=== PATIENT | male | born 1955 | race Caucasian/White ===

== ENCOUNTER 2018-03-03 11:46 | Observation (INO) ==
[2018-03-03] MEDS ORDERED: Acetaminophen 500 MG Tablet PO PRN (14:28)
[2018-03-03] MEDS ORDERED: Regadenoson Inj 0.4 MG/5 ML Syringe IV.PUSH ONE (15:48)
--- NOTE | 2018-03-03 15:49 | P.HP ---
History of Present Illness Chief Complaint: Chest pain History of Present Illness: This is a 62-year-old male patient with no documented medical conditions who presented to the ED with complains of chest pain as well as back and neck pain. 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 Although this morning he noticed a midsternal chest pressure, that was heavy in nature, was rated a 2 out of 10 at its worst on pain scale lasting a couple minutes and would come and go. Patient states that the pain is worse especially with increased stress. Denies any known alleviating factors. He does admit to shortness of breath with the pain, denies any nausea, vomiting or sweating. He does state that he has had intermittent chest pressure over the past several months occurring roughly once a month. He denies any recent illness including fever, chills, headache, abdominal pain, nausea, vomiting, diarrhea or dysuria. He does admit to a upper respiratory infection for the past couple weeks which is improved. He denies any recent antibiotic use. He denies any history of cardiovascular disease. Does not follow with a thinner sprayer. Has not seen a PCP in over 2 years. He is an active smoker, states he has been trying to quit since December. Family history significant for his mother having an AK at the age of [id number] years old. Does not take any medications at home. - Diagnosis (1) Atypical chest pain Review of Systems All other systems reviewed negative except as stated in HPI PMFSH - History History Provided By: Patient - Medical History Medical History: Medical History (Last Reviewed 03/03/18 @ 15:47 by Domenica Jones) Anxiety Hx of skin cancer, basal cell Hypertension - Surgical History Surgical History: Surgical History (Last Reviewed 03/03/18 @ 15:47 by Domenica Jones) History of surgical removal of skin lesion - Family History Family History: Family History (Last Updated 03/03/18 @ 16:02 by Domenica Jones) Other Cardiovascular disease - Social History I have reviewed the patient's Social History: Yes - Tobacco History Second Hand Smoke Exposure: Yes Smoking Status: Current some day smoker Tobacco Type: Cigarettes - Alcohol History How Often Do You Have a Drink Containing Alcohol: Monthly or less - Substance Use History Substance History: Past History Medications and Allergies Active Medications: Active Medications Acetaminophen (Tylenol) 500 mg PO Q4H PRN PRN Reason: HEADACHE Ondansetron HCl (Zofran Inj) 4 mg IV.PUSH Q6H PRN PRN Reason: NAUSEA Sodium Chloride (Ns Flush) 2 ml IV.FLUSH BID CONCEPCION Sodium Chloride (Ns Flush) 2 ml IV.FLUSH PRN PRN PRN Reason: FLUSH AFTER USING IV ACCESS Allergies Allergy/AdvReac Type Severity Reaction Status Date / Time No Known Allergies Allergy Verified 03/03/18 12:09 Home Medications Medication Instructions Recorded Confirmed Type No Known Home Medications 03/03/18 03/03/18 History Exam Narrative: GENERAL: Well-developed, well-nourished patient in [place]. On supplemental O2 SKIN: Warm and dry. No rash. HEAD: Normocephalic. Atraumatic. EYES: Pupils equal and round. No scleral icterus. No injection or drainage. ENT: No nasal bleeding or discharge. Mucous membranes pink and moist. NECK: Supple. Trachea midline. CARDIOVASCULAR: Regular rate and rhythm. S1, S2 noted. No murmur appreciated. No chest pain to palpation RESPIRATORY: No accessory muscle use. Clear to auscultation. Breath sounds equal bilaterally. GASTROINTESTINAL: Abdomen soft, non-tender, nondistended. Normoactive bowel sounds x4. MUSCULOSKELETAL: No obvious deformities. Extremities without clubbing, cyanosis , bilateral lower extremity edema 1+. NEUROLOGICAL: Awake and alert. No obvious cranial nerve deficits. Motor grossly within normal limits. 5/5 muscle strength in bilateral upper and lower extremities. Normal speech. PSYCHIATRIC: Appropriate mood and affect; insight and judgment normal. Caprini VTE Risk Assessment Caprini VTE Risk Assessment: Moderate/High Risk (score >= 2) Caprini Risk Assessment Model: Point Value = 1 Point Value = 2 Point Value = 3 Point Value = 5 Age 41-60 Minor surgery BMI > 25 kg/m2 Swollen legs Varicose veins or History of unexplained or recurrent spontaneous Oral contraceptives or hormone replacement Sepsis (< 1 month) Serious lung disease, including pneumonia (< 1 month) Abnormal pulmonary function Acute myocardial infarction Congestive heart failure (< 1 month) History of inflammatory bowel disease Medical patient at bed rest Age 61-74 Arthroscopic surgery Major open surgery (> 45 min) Laparoscopic surgery (> 45 min) Malignancy Confined to bed (> 72 hours) Immobilizing plaster cast Central venous access Age >= 75 History of VTE Family history of VTE Factor V Leiden Prothrombin [id number] Lupus anticoagulant Anticardiolipin antibodies Elevated serum homocysteine Heparin-induced thrombocytopenia Other congenital or acquired thrombophilia Stroke (< 1 month) Elective arthroplasty Hip, pelvis, or leg fracture Acute spinal cord injury (< 1 month) Prophylaxis Regimen: Total Risk Factor Score Risk Level Prophylaxis Regimen 0-1 Low Early ambulation 2 Moderate Order ONE of the following: *Sequential Compression Device (SCD) *Heparin 5000 units SQ BID 3-4 Higher Order ONE of the following medications: *Heparin 5000 units SQ TID *Enoxaparin/Lovenox 40 mg SQ daily (WT < 150 kg, CrCl > 30 mL/min) *Enoxaparin/Lovenox 30 mg SQ daily (WT < 150 kg, CrCl > 10-29 mL/min) *Enoxaparin/Lovenox 30 mg SQ BID (WT < 150 kg, CrCl > 30 mL/min) AND/OR *Sequential Compression Device (SCD) 5 or more Highest Order ONE of the following medications: *Heparin 5000 units SQ TID (Preferred with Epidurals) *Enoxaparin/Lovenox 40 mg SQ daily (WT < 150 kg, CrCl > 30 mL/min) *Enoxaparin/Lovenox 30 mg SQ daily (WT < 150 kg, CrCl > 10-29 mL/min) *Enoxaparin/Lovenox 30 mg SQ BID (WT < 150 kg, CrCl > 30 mL/min) AND *Sequential Compression Device (SCD) Assessment and Plan - Assessment (1) Atypical chest pain Code(s): R07.89 - Other chest pain Status: Acute - Plan This is a 62-year-old patient who presented to the ED with: Chest pain Bilateral lower extremity swelling Hypertension -Patient has been admitted to the chest pain center for observation. -Serial EKGs and serial troponins have been ordered for ruling out ACS purposes. Initial troponin flat. Continue to monitor trend. -EKG reviewed, normal sinus rhythm with no ST changes to indicate any ischemia. Patient is continued on cardiac telemetry, monitor for any arrhythmias overnight. -Chest x-ray reviewed showing no acute cardiopulmonary disease. CBC and BMP reviewed, essentially unremarkable. -BNP mildly elevated at 183. Will obtain echocardiogram. -Add lipid panel and hemoglobin A1c to labs. Follow. -Administer 20 mg of Lasix IV x1. Assess response. -Blood pressure in the 150 systolic. Lisinopril to regimen. Monitor blood sugar trends. -If ACS ruled out with serial EKGs and serial troponins, patient will undergo a cardiac Lexiscan to further rule out any ischemia. N.p.o. after midnight. -Patient stable at this time and agreeable to plan. -Further hospital station treatment plan will depend on nuclear imaging results. Acute respiratory insufficiency with hypoxia -Chest x-ray reviewed, no acute cardiopulmonary disease noted. Patient is requiring 2 L nasal cannula. Will attempt to wean. -Patient is relatively obese as well as a smoking history and this may be contributing, may have underlying lung disease. -Patient also had an upper respiratory infection the past couple weeks with cough which has improved this may be a contributing factor as well. -Will also give Lasix and assess if patient has improvement of breathing. -Continue to monitor. Tobacco abuse -Encouraged cessation. Nicotine patch offered. DVT prophylaxis: SCDs. Heparin.
[2018-03-03] MEDS ORDERED: Lisinopril 10 MG Tablet PO ONE (16:05)
[2018-03-03] MEDS ORDERED: Morphine Inj 4 MG/ML Vial IV.PUSH PRN (16:07)
[2018-03-03 18:20] LABS: Creatine Kinase 76 U/L (39-308)
[2018-03-03 21:00] LABS: Creatine Kinase 67 U/L (39-308)
[2018-03-03 23:04] LABS: Chol/HDL Ratio 4.92 Ratio; HDL Cholesterol 39.4 mg/dL (40.0-60.0)
[2018-03-04] MEDS ORDERED: Lisinopril 10 MG Tablet PO SCH (09:00)
--- NOTE | 2018-03-04 09:29 | ECHRPT ---
Indication: HEART FAILURE CONCLUSIONS The left ventricular systolic function is normal with an estimated ejection fraction in the range of 60-65%. Normal left ventricular size. Wall thickness is measured at the upper limits of normal. No regional wall motion abnormalities are present. Trace mitral valve regurgitation. Aortic valve sclerosis is present. BP: / HR: Rhythm: Sinus MEASUREMENTS (Male / Female) Normal Values Technical Quality:Technically difficult study 2D ECHO LV Diastolic Diameter PLAX 5.7 cm 4.2 - 5.9 / 3.9 - 5.3 cm LV Systolic Diameter PLAX 4.0 cm IVS Diastolic Thickness 1.1 cm 0.6 - 1.0 / 0.6 - 0.9 cm LVPW Diastolic Thickness 1.2 cm 0.6 - 1.0 / 0.6 - 0.9 cm LV Relative Wall Thickness 0.4 LVOT Diameter 2.2 cm LV Ejection Fraction MOD 4C 68.1 % LV Ejection Fraction 4C AL 68.8 % M-MODE Aortic Root Diameter MM 2.6 cm LA Systolic Diameter MM 4.0 cm LA Ao Ratio MM 1.5 AV Cusp Separation MM 2.1 cm DOPPLER AV Peak Velocity 124.0 cm/s AV Peak Gradient 6.2 mmHg LVOT Peak Velocity 115.0 cm/s LVOT Peak Gradient 5.3 mmHg AV Area Cont Eq pk 3.5 cm MV Area PHT 2.9 cm Mitral E Point Velocity 62.7 cm/s Mitral A Point Velocity 77.0 cm/s Mitral E to A Ratio 0.8 LV E' Lateral Velocity 3.8 cm/s Mitral E to LV E' Lateral Ratio 16.5 LV E' Septal Velocity 4.9 cm/s Mitral E to LV E' Septal Ratio 12.9 PV Peak Velocity 65.2 cm/s PV Peak Gradient 1.7 mmHg FINDINGS LEFT VENTRICLE The left ventricular systolic function is normal with an estimated ejection fraction in the range of 60-65%. Normal left ventricular size. Wall thickness is measured at the upper limits of normal. No regional wall motion abnormalities are present. Doppler parameters are consistent with impaired left ventricular relaxtion (grade 1 diastolic dysfun ction). RIGHT VENTRICLE Normal right ventricular size and systolic function. LEFT ATRIUM The left atrial size is normal. RIGHT ATRIUM The right atrial size is normal. ATRIAL SEPTUM Normal atrial septal thickness without atrial level shunting by limited color doppler interrogation. AORTA The aortic root and proximal ascending aorta are normal in size on limited imaging. MITRAL VALVE Structurally normal mitral valve. Trace mitral valve regurgitation. AORTIC VALVE Trileaflet aortic valve. No aortic valve stenosis or regurgitation. Aortic valve sclerosis is present. TRICUSPID VALVE Structurally normal tricuspid valve. No tricuspid valve stenosis or regurgitation. PULMONARY VALVE The pulmonary valve is not well visualized. VESSELS The inferior vena cava is normal in size. PERICARDIUM No pericardial effusion. Chauncey Arroyo MD (Electronically Signed) Final Date:04 March 2018 09:27
--- NOTE | 2018-03-04 10:49 | P.PNIM ---
Subjective Interval history: Follow-up chest pain. Patient seen and examined, lying in bed continued on 1 L nasal cannula. He states that he does feel somewhat shortness of breath with exertion. Echocardiogram showing compensated diastolic heart failure. Chest pain is resolved. Awaiting Lexiscan this morning. Keep n.p.o. Afebrile. Vital signs stable. Physical Exam Vital signs: Vital Signs 03/03/18 16:00 03/03/18 20:00 03/04/18 00:00 Temperature 96.9 F L 97.9 F 96.9 F L Pulse Rate 72 80 71 Respiratory Rate 20 16 20 Blood Pressure 140/94 H 129/66 116/58 L Pulse Oximetry 91 L 03/04/18 04:00 03/04/18 08:00 03/04/18 09:01 Temperature 96.8 F L 96.7 F L Pulse Rate 68 71 Respiratory Rate 20 20 18 Blood Pressure 138/70 168/84 H Pulse Oximetry 94 L 91 L 03/04/18 09:35 03/04/18 09:46 03/04/18 09:48 Temperature Pulse Rate Respiratory Rate 18 Blood Pressure Pulse Oximetry 88 L 94 L Intake & Output 03/03/18 03/04/18 03/04/18 18:59 06:59 18:59 Intake Total 360 / 360 Output Total 60 / 60 Balance 360 / 360 -60 / -60 Weight 140.8 kg 140.8 kg Intake: Oral 360 / 360 Output: Urine 60 / 60 Other: # Voids 2 Date of Last Bowel Movement 03/03/18 # Bowel Movements 0 Weight On Admission 140.8 kg Narrative: GENERAL: Well-developed, well-nourished patient in [facility]. SKIN: Warm and dry. No rash. HEAD: Normocephalic. Atraumatic. EYES: Pupils equal and round. No scleral icterus. No injection or drainage. ENT: No nasal bleeding or discharge. Mucous membranes pink and moist. NECK: Supple. Trachea midline. CARDIOVASCULAR: Regular rate and rhythm. S1, S2 noted. No murmur appreciated. No chest pain to palpation RESPIRATORY: No accessory muscle use. Clear to auscultation. Breath sounds equal bilaterally. GASTROINTESTINAL: Abdomen soft, non-tender, nondistended. Normoactive bowel sounds x4. MUSCULOSKELETAL: No obvious deformities. Extremities without clubbing, cyanosis , bilateral lower extremity edema 1+. NEUROLOGICAL: Awake and alert. No obvious cranial nerve deficits. Motor grossly within normal limits. 5/5 muscle strength in bilateral upper and lower extremities. Normal speech. PSYCHIATRIC: Appropriate mood and affect; insight and judgment normal. Results - Labs Laboratory Results - last 24 hr 03/03/18 03/03/18 03/03/18 17:12 17:12 20:06 Total Creatine Kinase 76 67 Troponin I Less than 0.02 L Less than 0.02 L Triglycerides 248 H Cholesterol 194 LDL Cholesterol, Calc 105 H HDL Cholesterol 39.4 L Cholesterol/HDL Ratio 4.92 Assessment and Plan - Assessment (1) Atypical chest pain Code(s): R07.89 - Other chest pain Status: Inactive - Plan This is a 62-year-old patient who presented to the ED with: Chest pain, resolved Bilateral lower extremity swelling, improved Hypertension New onset congestive heart failure, diastolic, not in exacerbation. -Patient has been admitted to the chest pain center for observation. -Serial EKGs and serial troponins have been ordered for ruling out ACS purposes. Attention flat. -EKG reviewed, normal sinus rhythm with no ST changes to indicate any ischemia. Patient is continued on cardiac telemetry, monitor for any arrhythmias overnight. None overnight. -Chest x-ray reviewed showing no acute cardiopulmonary disease. -CBC and BMP reviewed, essentially unremarkable. -BNP mildly elevated at 183. Echocardiogram showing compensated diastolic heart failure. Adequate EF. -Elevated lipids and hemoglobin A1c pending. -Administer 20 mg of Lasix IV x1. Assess response. Diuresed well. Added hydrochlorothiazide to regimen. -Blood pressure in the 150 systolic. Lisinopril to regimen. Monitor blood sugar trends. -ACS ruled out with serial EKGs and serial troponins, patient will undergo a cardiac Lexiscan to further rule out any ischemia. N.p.o. -Patient stable at this time and agreeable to plan. -Further hospital station treatment plan will depend on nuclear imaging results. Acute respiratory insufficiency with hypoxia. Improved. -Chest x-ray reviewed, no acute cardiopulmonary disease noted. Oxygen weaned off. -Patient is relatively obese as well as a smoking history and this may be contributing, may have underlying lung disease. -Patient also had an upper respiratory infection the past couple weeks with cough which has improved this may be a contributing factor as well. -Was given Lasix as well. Diuresed well. Breathing improved. -Continue to monitor. Tobacco abuse -Encouraged cessation. Nicotine patch offered. DVT prophylaxis: SCDs. Heparin.
[2018-03-04] MEDS ORDERED: hydroCHLOROthiazide 25 MG Tablet PO SCH (11:30)
--- NOTE | 2018-03-04 11:51 | ECG ---
Date Performed: 03/03/2018 Time Performed: 17:10:31 PTAGE: 62 years EKG: Sinus rhythm MODERATE INTRAVENTRICULAR CONDUCTION DELAY BORDERLINE ECG Since the previous tracing, no significant change noted NO PREVIOUS TRACING DOCTOR: Augustin Kelly Interpretating Date/Time 03/04/2018 11:50:14
--- NOTE | 2018-03-04 11:51 | ECG ---
Date Performed: 03/03/2018 Time Performed: 20:03:04 PTAGE: 62 years EKG: Sinus rhythm MODERATE INTRAVENTRICULAR CONDUCTION DELAY BORDERLINE ECG PREVIOUS TRACING : 03/03/2018 17.10 Since the previous tracing, no significant change noted DOCTOR: Augustin Kelly Interpretating Date/Time 03/04/2018 11:49:59
[2018-03-04 12:36] VITALS: PULSE 79
[2018-03-04 13:12] VITALS: BP 169/88; RESP 20; TEMP 96.9
[2018-03-04 14:00] VITALS: O2SAT 92
--- NOTE | 2018-03-04 14:12 | NM ---
EXAM DATE: 03/04/2018 2:05 PM EST AGE/SEX: 62 years / Male INDICATIONS:Angina. . Chest pain. CLINICAL DATA: This is the patient's initial encounter. Patient reports that signs and symptoms have been present for 3 days and indicates a pain score of 4/10. MEDICAL/SURGICAL HISTORY: Hypertension. Basal cell carcinoma of skin. None. COMPARISON: No prior exams available for comparison. DOSE: 11.2 mCi Tc 99m Myoview at rest 35.1 mCi [id number] at stress 0.4 mg Lexiscan STRESS SYMPTOMS: Short of breath. EJECTION FRACTION: 39 % TECHNIQUE: The patient underwent pharmacologic stress with infusion of prescribed dose. Continuous ECG tracing was monitored during stress. Gated SPECT imaging was performed after stress and conventi onal SPECT imaging was performed at rest. The examination was performed on a SPECT/CT scanner, both attenuation and non-corrected datasets were reviewed. FINDINGS: Distribution: The maximum perfused segment at stress is in the septal wall. Perfusion Study: The pattern of perfusion at stress is within normal limits with some degree of sridhar phragmatic attenuation artifact overlapping posterior basal wall and no ischemia . Gated Study: There there is global hypokinesis . The ejection fraction is calculated at 39%. RISK CATEGORY: Low (<1% Annual Motality Rate) CONCLUSION: 1. Global hypokinesis and reduction in ejection fraction without any significant ischemia. Electronically signed by: Felicita Trejo MD Board Certified Radiologist 03/04/2018 2:11 PM EST
--- NOTE | 2018-03-04 14:55 | TR ---
Date Performed: 03/04/2018 Time Performed: 12:24:10 DOCTOR: Renato Ponce DRUG LIST: CLINICAL HISTORY: REASON FOR TEST: Angina REASON FOR ENDING: OBSERVATION: CONCLUSION: Lexiscan stress test was performed under standard four minute protocol. Radionuclide was injected one minute prior to ending the test. No electrocardiographic abormalities were present to suggest ischemia. Nuclear imaging and interpretation are pending. COMMENTS:
== END 2018-03-04 14:51 | disposition home or self-care (01) ==
LOC: PHEDA 11:46 → PHEDDLT 11:46 → PH3 17:06
PROVIDERS: ADMIT Hospitalist; ATTEND Hospitalist